=== PATIENT | male | born 1995 | race Caucasian/White ===

== ENCOUNTER 2017-08-06 19:32 | Emergency (ER) | payer MEDICAID ==
--- NOTE | 2017-08-06 20:59 | EDPHY ---
HPI/HX/ROS/PE/MDM Narrative: CHIEF COMPLAINT: Possible concussion HPI: This patient is a 21 year old male complaining of headache and nausea secondary to a boxing injury sustained last night around 10pm. He was boxing with friends , wearing boxing gloves, when he was struck in the right ear. He developed an immediate headache, nausea, right-sided tinnitus, and photophobia. He vomited shortly after the incident. He noted some repetitive motion in his right hand yesterday evening. He has history of prior concussion, and states these symptoms are similar to his previous concussion. This morning, he woke with continued symptoms. He has not vomited again, but has a lack of appetite due to nausea. He endorses right jaw pain, but was able to chew without pain. He denies any other recent trauma. REVIEW OF SYSTEMS: Aside from elements discussed in the HPI, a comprehensive 10-point review of systems was reviewed and is negative. PMH: Prior concussion. SOCIAL HISTORY: Lives in [place]. Single. Nonsmoker. PHYSICAL EXAM: General:Patient is alert, in no acute distress. ENT:Eyes are normal to inspection. ENT inspection normal. Right TM intact. Neck: Normal inspection. Full range of motion. Respiratory:No respiratory distress. Cardiovascular: Regular rate and rhythm. Normal cap refill. Back: Normal to inspection. No tenderness to palpation. Skin: Normal color. No rash. Warm and dry. Extremities: Normal appearance. Full range of motion. Neuro: Oriented x3. Normal motor function. Normal sensory function. No pronator drift. Normal [id number]. Normal [id number]. ED Course: 21 y/o male presents with headache, nausea, photophobia, and tinnitus secondary to being struck in the head while boxing yesterday evening. He is neurologically intact on exam. No evidence of perforation to right tympanic membrane. CT head criteria, risks, and benefits discussed. The patient declines CT at this time. Plan to discharge home in good condition. Follow up and return precautions discussed in detail. He will be provided with a prescription for Zofran for nausea relief. The patient is comfortable with this plan. General Time Seen by Provider: 08/06/17 20:58 Initial Vital Signs: Initial Vital Signs Temperature (C) 36.5 C 08/06/17 19:45 Heart Rate 88 12/04/17 19:45 Respiratory Rate 20 08/06/17 19:45 Blood Pressure 145/76 H 08/06/17 19:45 O2 Sat (%) 96 08/06/17 19:45 O2 Delivery Mode Room Air Allergies/Adverse Reactions: No Known Allergies Allergy (Unverified 08/06/17 19:45) Home Medications: Medication Instructions Recorded NK [No Known Home Meds] 08/06/17 Departure - Departure Disposition: Home, Routine, Self-Care Clinical Impression: Concussion Qualifiers: Encounter type: initial encounter Loss of consciousness presence/duration: without LOC Qualified Code(s): S06.0X0A - Concussion without loss of consciousness, initial encounter Condition: Good Instructions: Ondansetron (By mouth), Concussion (ED) Additional Instructions: 1. Follow-up with your primary care doctor this week. We have referred you to a concussion specialist, please follow up with her as well for continued management of your symptoms. 2. Brain rest - try to avoid TV, video games, cell phones, or reading while symptoms persist. You may reintroduce activities as tolerated. 3. Physical rest - avoid activities that could result in further head injury or that require prolonged attention until your symptoms completely resolve. 4. You may take Tylenol or Ibuprofen as directed below as needed for pain. 5. Return to the Emergency Department for severe headache, vomiting, vision changes, confusion, seizure, fever or other concerns. 6. Stay well hydrated. Take Zofran as prescribed as needed for nausea. Adult Pain & Fever Control: We recommend Acetaminophen (Tylenol) and Ibuprofen (Motrin,Advil) for pain and fever control. When fever is high or pain severe, both drugs can be used at the same time, but at different intervals. Please note the time differences. Your dose is: Acetaminophen 650mg every 4 to 6 hours Ibuprofen 600mg every 6-8 hours with food Note: do not take Acetaminophen with Hydrocodone (Vicodin, Lortab) or Oxycodone (Percocet). These medications also contain Acetaminophen. No more than 3000mg of Acetaminophen should be taken in 24 hours (for an adult). Referrals: Rebeca Harris MD [Medical Doctor] - As per Instructions Merna Khan MD [Medical Doctor] - As per Instructions Report Scribed for: River Parekh Report Scribed by: Aparna Mariano Date of Report: 08/06/17 Time of Report: 20:59 Physician Review and Approval Statement: Portions of this note were transcribed by an ED scribe. I personally performed the history, physical exam, and medical decision making; and confirm the accuracy of the information in the transcribed note.
[2017-08-06] MEDS ORDERED: ONDANSETRON 4MG PREPACK#2 BTL TAKEHOME ONE (21:06)
[2017-08-06] MEDS ORDERED: ONDANSETRON DISINTEGRATING 4 MG TAB PO ONE (21:20)
[2017-08-06] MEDS ORDERED: ONDANSETRON DISINTEGRATING 4 MG TAB ONE (21:21)
[2017-08-06 21:25] VITALS: BP 136/72; PULSE 84; RESP 14; TEMP 98.1; O2SAT 98
== END 2017-08-06 21:23 | disposition home or self-care (01) ==
DX: S06.0X0A Concussion without loss of consciousness, initial encounter (principal); W50.0XXA Accidental hit or strike by another person, initial encounter; Y99.8 Other external cause status; Y93.71 Activity, boxing

== ENCOUNTER 2018-06-27 10:32 | Emergency (ER) | payer MEDICAID, OTHER ==
[2018-06-27] MEDS ORDERED: IPRATROPIUM/ALBUTEROL 3 ML DEYVIAL IH ONE (10:47)
--- NOTE | 2018-06-27 10:47 | EDPHY ---
General Time Seen by Provider: 06/27/18 10:40 Narrative: CHIEF COMPLAINT: Cough, shortness of breath, sore throat HISTORY OF PRESENT ILLNESS: Patient presents by private vehicle with complaints of cough, shortness of breath and sore throat. Cough started approximately 4 days ago. Somewhat dry occasionally productive at night. Worse throughout the afternoon and evening. Improves in the late morning. Then developed sore throat, runny nose, sinus congestion, shortness of and occasional lightheadedness. He does occasionally report vomiting after coughing. No abdominal pain or discomfort. No neck pain or stiffness. No fever. No headache. No abdominal pain. No rash. Symptoms rated as moderate. Minimal improvement with Aleve [id number]. No other medications taken. No other associated complaints or modifying factors REVIEW OF SYSTEMS: 10 systems were reviewed and negative with the exception of the elements mentioned in the history of present illness. PCP: Located in [place] SPECIALISTS: None PAST MEDICAL HISTORY: Concussions PAST SURGICAL HISTORY: No surgical history SOCIAL HISTORY: Occasional tobacco alcohol or marijuana user. [employer] student. Originally from [place], [place] FAMILY HISTORY: Noncontributory EXAMINATION: General Appearance: Alert, no distress. Well appearing. Conversing in full sentences Head: normocephalic, atraumatic Eyes: Pupils equal and round, no conjunctival pallor or injection. ENT, Mouth: Mucous membranes moist. Uvula is midline. The airway is widely patent. The posterior pharynx is normal in appearance without edema or erythema. No exudate. No trismus. Normal voice. Neck: Normal inspection, supple, non-tender. No meningismus or rigidity. Respiratory: Scattered rhonchi with no consolidation, diminishment or crackles. Mild expiratory wheezes. Cardiovascular: Regular rate and rhythm. No murmur Gastrointestinal: Abdomen is soft and nontender Back: non-tender, no bony abnormalities Neurological: A&O, nonfocal, normal gait Skin: Warm and dry, no rash no petechiae or purpura Extremities: Nontender, no pedal edema Psychiatric: Mood and affect normal DIFFERENTIAL DIAGNOSES: Including but not limited to bacterial bronchitis, viral bronchitis, pneumonia, bronchiolitis, pneumonitis, influenza, pharyngitis, strep pharyngitis, upper respiratory infection MDM: 10:40 a.m. Cough with some shortness of breath, sore throat, runny nose and malaise. Vital signs are within normal limits. The pharynx is normal in appearance. I do not think strep is likely given the other confluence of symptoms. Suspect bronchitis less likely pneumonia. I have ordered a DuoNeb treatment and chest x -ray. Do not feel he warrants any further testing at this time. Patient is comfortable this plan as well. Resting comfortably. No acute distress. No SIRS criteria. 11:05 a.m. Chest XR as read by me, without radiologist, reveals no evidence of pneumonia or pneumothorax. Pending their interpretation. He is currently receiving his DuoNeb treatment. 11:25 a.m. X-ray has been read by radiologist as suspected airway disease without pneumonia. This does clinically correlate. He will be discharged home with instructions for bronchitis and symptomatic medications. We discussed short course of steroids, antitussive, anti-inflammatories. We discussed follow up with the local primary care physician, which we have provided for him. We discussed ED precautions for worsening symptoms, chest pain, exertional pain or difficulty breathing. I have answered all his questions. He is well-appearing and discharged home stable condition. SUPERVISION: This patient was independently evaluated without direct involvement of or examination by the attending physician. CONSULTATION: None - Diagnostics Imaging Results: Imaging Impressions Chest X-Ray 06/27/18 10:47 Impression: Suspect airways disease. No pneumonia. - History Smoking Status: Current every day smoker - Objective Vital Signs: Initial Vital Signs Temperature (C) 97.9 F 06/27/18 10:34 Heart Rate 63 06/27/18 10:34 Respiratory Rate 17 06/27/18 10:34 Blood Pressure 142/90 H 06/27/18 10:34 O2 Sat (%) 96 06/27/18 10:34 O2 Delivery Mode Room Air Allergies/Adverse Reactions: No Known Allergies Allergy (Verified 06/27/18 10:34) Home Medications: Medication Instructions Recorded Dexamethasone [Decadron 4 MG (*)] 4 mg PO AD #4 tab 06/27/18 Dextromethorphan Polistirex 30 mg PO BID PRN #1 btl 06/27/18 [Delsym] HYDROcodone/HOMATROPINE HYCODA 1 tsp PO Q4-6PRN PRN #120 ml 06/27/18 [Hycodan Syrup (*)] guaiFENesin [Mucinex] 1,200 mg PO BID #30 tab.er.12h 06/27/18 Medications Given: Discontinued Medications Albuterol/Ipratropium (Duoneb) 3 ml IH EDNOW ONE Stop: 06/27/18 10:48 Last Admin: 06/27/18 11:05 Dose: 3 ml Departure - Departure Disposition: Home, Routine, Self-Care Clinical Impression: Acute bronchitis Qualifiers: Bronchitis organism: unspecified organism Qualified Code(s): J20.9 - Acute bronchitis, unspecified URI (upper respiratory infection) Qualifiers: URI type: unspecified URI Qualified Code(s): J06.9 - Acute upper respiratory infection, unspecified Condition: Good Instructions: Upper Respiratory Infection (ED), Acute Bronchitis (ED) Additional Instructions: 1. Medications as prescribed as needed 2. Continue [id number] anti-inflammatories. Either ibuprofen 600 mg every 6-8 hours or Aleve, 1-2 pills by mouth twice daily. Do not combine the 3. I have provided the on-call primary care physician for you to contact and establish with 4. Continue to increase your fluid intake for next few days 5. ED precautions for worsening symptoms, difficulty breathing, chest pain, headache, neck pain or stiffness Referrals: Mariaa Nava MD [[facility] – [place] Primary Care Provider] - As per Instructions Physician,Emergency DeptMD [Medical Doctor] - As per Instructions Stand Alone Forms: School Excuse Prescriptions: Dexamethasone [Decadron 4 MG (*)] 4 mg PO AD #4 tab Dextromethorphan Polistirex [Delsym] 30 mg PO BID PRN #1 btl PRN Reason: Cough, Mild guaiFENesin [Mucinex] 1,200 mg PO BID #30 tab.er.12h HYDROcodone/HOMATROPINE HYCODA [Hycodan Syrup (*)] 1 tsp PO Q4-6PRN PRN #120 ml PRN Reason: Cough, Moderate
[2018-06-27 11:40] VITALS: BP 129/82
== END 2018-06-27 11:36 | disposition home or self-care (01) ==
DX: J20.9 Acute bronchitis, unspecified (principal)

== ENCOUNTER 2018-08-31 20:13 | Emergency (ER) | payer OTHER ==
[2018-08-31 20:19] VITALS: BP 148/85
[2018-08-31] MEDS ORDERED: AMOXICILLIN 250 MG PREPACK#4 BTL TAKEHOME ONE (20:33)
[2018-08-31] MEDS ORDERED: DEXAMETHASONE 4 MG TAB PO ONE (20:33)
--- NOTE | 2018-08-31 20:33 | EDPHY ---
H & P Stated Complaint: Sore Throat, Vomiting, Coughing, Sweats Time Seen by Provider: 08/31/18 20:25 HPI/ROS: HPI: This is a 22-year-old male who presents with Chief Complaint: Sore Throat, Vomiting, Coughing, Sweats Location: Throat Quality: Sore Duration: Several hours Signs and Symptoms: + subjective fever, no nausea, no vomiting, no diarrhea, no urinary symptoms, no chest pain, no shortness of breath, no wheezing, no cough, no neck stiffness, no joint pain, no swollen glands, no ear pain, no rash, no drooling, no muffled voice Timing: Rapid onset, constant Severity: Moderate Context: Patient reports that he woke up this morning with a sore throat that is moderate and constant in nature that is worsened throughout the day. He reports that he has swollen glands and no cough. He reports subjective fever but has not actually taken it. Smoker. Modifying Factors: No twaf-[id number] pain medications take Comment: ROS: A comprehensive 10 system review of systems is otherwise negative aside from elements mentioned in the history of present illness. MEDICAL/SURGICAL/SOCIAL HISTORY: Medical history: Concussion history Surgical history: Denies Social history: Smoker. Family history noncontributory. CONSTITUTIONAL: Ill but nontoxic-appearing young adult white male, awake and alert, no obvious distress HEENT: Atraumatic and normocephalic, PERRL, EOMI. Nares patent; no rhinorrhea; no nasal mucosal edema. Tympanic membranes clear. Oropharynx clear, tonsils 2 + with moderate erythema, uvula midline no exudate and moist pink mucosa. Airway patent. + spotty cervical anterior lymphadenopathy. No meningismus. Cardiovascular: Normal S1/S2, regular rate, regular rhythm, without murmur rub or gallop. PULMONARY/CHEST: Symmetrical and nontender. Clear to auscultation bilaterally. Good air movement. No accessory muscle usage. ABDOMEN: Soft, nondistended, nontender, no rebound, no guarding, no peritoneal signs, no masses or organomegaly. No CVAT. EXTREMITIES: 2/2 pulses, strength 5/5, no deformities, no clubbing, no cyanosis or edema. NEUROLOGICAL: no focal neuro deficits. GCS 15. SKIN: Warm and dry, no erythema. no rash. Good capillary refill. Source: Patient Exam Limitations: No limitations - Personal History Current Tetanus Diphtheria and Acellular Pertussis (TDAP): Yes - Medical/Surgical History Hx Asthma: No Hx Chronic Respiratory Disease: No Hx Diabetes: No Hx Cardiac Disease: No Hx Renal Disease: No Hx Cirrhosis: No Hx Alcoholism: No Hx HIV/AIDS: No Hx Splenectomy or Spleen Trauma: No Other PMH: concussions - Social History Smoking Status: Current some day smoker Constitutional: Initial Vital Signs Temperature (C) 36.7 C 08/31/18 20:16 Heart Rate 90 08/31/18 20:16 Respiratory Rate 18 08/31/18 20:16 Blood Pressure 148/85 H 08/31/18 20:16 O2 Sat (%) 96 08/31/18 20:16 O2 Delivery Mode Room Air Allergies/Adverse Reactions: No Known Allergies Allergy (Verified 06/27/18 10:34) Home Medications: Medication Instructions Recorded Amoxicillin Trihydrate [Amoxil] 500 mg PO TID 10 Days cap 08/31/18 Medical Decision Making ED Course/Re-evaluation: Vital signs reviewed and stable upon arrival. No signs of airway compromise/tonsillar abscess/meningitis Based on modified Centor score will treat prophylactically for strep throat without performing a strep test Given Decadron 10 mg as well as amoxicillin prepack and prescription times 10 days This patient was seen under the supervision of my secondary supervising physician. I evaluated care for this patient independently. Discussed this patient with Dr. Bueno who did not see the patient. Differential Diagnosis: Differential diagnosis includes but is not limited to viral syndrome, respiratory infection, strep pharyngitis, sinusitis, influenza. Departure - Departure Disposition: Home, Routine, Self-Care Clinical Impression: Pharyngotonsillitis Condition: Good Instructions: Strep Throat (ED) Additional Instructions: Consume a minimum of 8-10 glasses of water or electrolyte fluid replacement drinks that include Gatorade, Powerade, Pedialyte. Eat a bland diet for the next 48 hours and then slowly advance as tolerated. Take amoxicillin 3 times a day times 10 days. Take Tylenol 650 mg every 4 hours and/or Ibuprofen 600 mg every 8 hours with food as needed for pain/headache. Return to the ER immediately if you cannot swallow, have drooling, fevers, neck stiffness, cannot open your jaw, or any other symptoms that concern you. Referrals: [facility],. [Clinic] - As per Instructions Stand Alone Forms: School Excuse Prescriptions: Amoxicillin Trihydrate [Amoxil] 500 mg PO TID 10 Days cap
== END 2018-08-31 20:48 | disposition home or self-care (01) ==
DX: B00.2 Herpesviral gingivostomatitis and pharyngotonsillitis (principal); F17.200 Nicotine dependence, unspecified, uncomplicated